=== PATIENT | male | born 1990 | race Hispanic/Latino ===

== ENCOUNTER 2023-11-05 14:14 | Emergency (ER) | payer SELFPAY ==
[~2023-11-05] VITALS: Ht 160 cm; Wt 83.8 kg
[2023-11-05 14:33] VITALS: BP 130/71
[2023-11-05 14:42] LABS: URINE BILIRUBIN - DIPSTICK Negative (NEGATIVE); URINE BLOOD DIPSTICK Negative (NEGATIVE); URINE GLUCOSE - DIPSTICK Negative (NEGATIVE); URINE KETONE Negative (NEGATIVE); URINE LEUK ESTERASE Negative (NEGATIVE); URINE NITRITE - DIPSTICK Negative (Negative); URINE PH 5.5 (4.5-8.0); URINE PROTEIN - DIPSTICK Negative (NEG-TRACE); URINE SPECIFIC GRAVITY 1.025; URINE UROBILINOGEN - DIPSTICK 0.2 E.U./dL (0.2)
[2023-11-05 14:43] LABS: URINE COLOR Yellow
[2023-11-05 14:54] LABS: BASO% 0.3 % (0-3); EOS% 3.1 % (0-8); HEMATOCRIT 43.3 % (39.0-50.0); HEMOGLOBIN 15.1 g/dl (14.0-18.0); IMMATURE GRANULOCYTES 0.3 % (0.0-5.0); MEAN CELL VOLUME 82.8 fL CALC (80.0-100.0); MEAN CORPUSCULAR HGB 28.9 pG CALC (26.0-32.0); MEAN CORPUSCULAR HGB CONC 34.9 g/dL CAL (32.0-36.0); MONO% 5.7 % (2-13); NEUT# 4.01 thou/uL (1.82-7.42); NEUT% 65.6 % (42-76); RED BLOOD COUNT 5.23 mill/uL (4.70-6.10); RED CELL DISTRI WIDTH 12.5 % (11.5-15.5)
[2023-11-05 15:06] LABS: ALBUMIN 4.5 g/dL (3.2-5.0); ALKALINE PHOSPHATASE 67 u/l (38-126); ANION GAP 17 (6-22 (CALC)); BILIRUBIN, TOTAL 0.9 mg/dL (0.2-1.3); BUN 20 mg/dL (9-20); BUN/CREATININE RATIO 28 (12-20 (CALC)); CARBON DIOXIDE 22 mmol/l (22-30); CHLORIDE 105 mmol/l (95-108); CREATININE 0.7 mg/dL (0.7-1.3); GFR FOR AFR.AMER. > 60 ML/MIN (>=60 (CALC)); GFR OTHER RACES > 60 ML/MIN (>=60 (CALC)); LIPASE 93 u/l (23-300); POTASSIUM 3.9 mmol/l (3.5-5.1); SGOT/AST 63 u/l (17-59); SODIUM 139 mmol/l (137-146); TOTAL PROTEIN 7.7 g/dL (6.3-8.2)
[2023-11-05 16:20] VITALS: BP 98/61
[2023-11-05 16:30] VITALS: BP 101/61
[2023-11-05 16:46] VITALS: BP 101/62
[2023-11-05 17:01] VITALS: BP 97/61
[2023-11-05] MEDS ORDERED: MIRALAX17 GM PO (17:11)
[2023-11-05] MEDS ORDERED: CONSTULOSE10 GM/15 M PO (17:11)
[2023-11-05] MEDS ORDERED: DICYCLOMINE HYD10 MG PO (17:13)
[2023-11-05 17:16] VITALS: BP 97/61
== END 2023-11-05 17:26 | disposition home or self-care (01) | DRG 392 ==
LOC: ED 14:14
PROVIDERS: Nurse Practitioner
DX: K59.00 Constipation, unspecified (principal)
CPT/HCPCS: Q9967